=== PATIENT | female | born 1980 | race Caucasian/White ===

== ENCOUNTER 2017-03-12 10:00 | Emergency (ER) | payer OTHER ==
[2017-03-12 10:24] VITALS: BP 118/76
--- NOTE | 2017-03-12 10:49 | UC ---
Throat Pain/Nasal Frandy HPI - HPI Summary HPI Summary: Per it support analyst "Pt c/o of sore throat which started yesterday and pt states her friends have strep. " c/o ST, swollen glands and white spots. tmax 99. ibuprofen has been helping severe pain. no rash - History of Current Complaint Chief Complaint: UCGeneralIllness Stated Complaint: SORE THROAT Time Seen by Provider: 03/12/17 10:30 Hx Last Menstrual Period: 02/26/17 - Allergies/Home Medications Allergies/Adverse Reactions: Allergies Allergy/AdvReac Type Severity Reaction Status Date / Time No Known Allergies Allergy Verified 11/30/16 15:06 PMH/Surg Hx/FS Hx/Imm Hx Previously Healthy: Yes - Surgical History Surgical History: Yes Surgery Procedure, Year, and Place: D&C x2 - Family History Known Family History: Positive: Diabetes - Mom, Other - Positive FMH for uri - Social History Alcohol Use: Occasionally Substance Use Type: None Smoking Status (MU): Never Smoked Tobacco Review of Systems Constitutional: Negative Skin: Negative Eyes: Negative ENT: Sore Throat Respiratory: Negative Cardiovascular: Negative Gastrointestinal: Negative Genitourinary: Negative Motor: Negative Neurovascular: Negative Musculoskeletal: Negative Neurological: Negative Psychological: Negative All Other Systems Reviewed And Are Negative: Yes Physical Exam Triage Information Reviewed: Yes Appearance: No Pain Distress, Well-Nourished - very pleasant Vital Signs: Initial Vital Signs Temp 99.0 F 03/12/17 10:20 Pulse 106 03/12/17 10:20 Resp 14 03/12/17 10:20 BP 118/76 03/12/17 10:20 Pulse Ox 100 03/12/17 10:20 Vital Signs Reviewed: Yes Eye Exam: Normal ENT: Positive: Hearing grossly normal, Pharyngeal erythema - + exudate, TMs normal. Negative: Nasal congestion Dental Exam: Normal Neck: Positive: Supple, Nontender, Enlarged Nodes @ - + anterior cervical LAD Respiratory: Positive: Lungs clear, Normal breath sounds, No respiratory distress, No accessory muscle use. Negative: Crackles, Rhonchi, Stridor, Wheezing Cardiovascular Exam: Normal Cardiovascular: Positive: RRR, No Murmur, Pulses Normal, Brisk Capillary Refill Abdomen Description: Positive: Nontender, Soft Musculoskeletal Exam: Normal Neurological Exam: Normal Psychological Exam: Normal Skin Exam: Normal Skin: Negative: rashes Throat Pain/Nasal Course/Dx - Course Course Of Treatment: + rapid strep - Differential Dx/Diagnosis Differential Diagnosis/HQI/PQRI: Laryngitis, Mononucleosis, Peritonsillar Abscess, Pharyngitis, URI, Other - strep Provider Diagnoses: strep pharyngitis Discharge - Discharge Plan Condition: Stable Disposition: HOME Prescriptions: Amoxicillin PO (*) [Amoxicillin 875 MG (*)] 875 mg PO BID #20 tab Patient Education Materials: Strep Throat (ED) Referrals: Lizette Mendez MD [Primary Care Provider] - 3 Days Additional Instructions: Make sure to take a probiotic daily while on antibiotics to help prevent a potential complication of antibiotic use called c diff. Some well known brands that can be found OTC are [employer], [email or web address] and [facility]. Make sure to complete the entire prescription unless advised otherwise by your health care provider.
== END 2017-03-12 11:09 | disposition home or self-care (01) ==
LOC: UCCORT 10:00
DX: J02.0 Streptococcal pharyngitis (principal)
CPT/HCPCS: 87651; 99212; G0463

== ENCOUNTER 2017-09-20 15:09 | Emergency (ER) | payer OTHER ==
[2017-09-20 16:39] VITALS: BP 125/74
--- NOTE | 2017-09-20 17:00 | UC ---
Complaint Female HPI - HPI Summary HPI Summary: ONSET YESTERDAY OF DYSURIA, FREQUENCY AND URGENCY. SOME LOWER ABD PAIN AND BLOOD IN URINE TODAY. NO FEVER OR BACK PAIN. - History Of Current Complaint Chief Complaint: UCGU Stated Complaint: URINARY Time Seen by Provider: 09/20/17 16:55 Hx Obtained From: Patient Hx Last Menstrual Period: 08/26/17 Onset/Duration: Gradual Onset, Lasting Days, Still Present Severity Initially: Moderate Severity Currently: Moderate Pain Intensity: 7 Pain Scale Used: 0-10 Numeric Character: Burning Aggravating Factor(s): Urination Alleviating Factor(s): Nothing Associated Signs And Symptoms: Negative: Fever, Back Pain, Vaginal Bleeding/ Discharge, Vaginal Discharge, Nausea, Vomiting(# Of Episodes =) - Allergies/Home Medications Allergies/Adverse Reactions: Allergies Allergy/AdvReac Type Severity Reaction Status Date / Time No Known Allergies Allergy Verified 09/20/17 16:33 PMH/Surg Hx/FS Hx/Imm Hx Cardiovascular History: Hypertension Respiratory History: Asthma - Surgical History Surgical History: Yes Surgery Procedure, Year, and Place: D&C x2. LEFT ankle-2 plates, 20 screws - Family History Known Family History: Positive: Diabetes - Mom, Other - Positive FMH for uri - Social History Alcohol Use: Weekly Alcohol Amount: 6 per week Substance Use Type: None Smoking Status (MU): Never Smoked Tobacco Amount Used/How Often: 1/ 2pack a day for 2 years When Did the Patient Quit Smoking/Using Tobacco: 2009 Review of Systems Constitutional: Negative Respiratory: Negative Cardiovascular: Negative Gastrointestinal: Abdominal Pain Genitourinary: Dysuria, Hematuria, Frequency, Urgency All Other Systems Reviewed And Are Negative: Yes Physical Exam Triage Information Reviewed: Yes Appearance: Well-Appearing, No Pain Distress, Well-Nourished Vital Signs: Initial Vital Signs Temp 98.4 F 09/20/17 16:34 Pulse 104 09/20/17 16:34 Resp 16 09/20/17 16:34 BP 125/74 09/20/17 16:34 Pulse Ox 97 09/20/17 16:34 Vital Signs Reviewed: Yes Eyes: Positive: Conjunctiva Clear ENT: Positive: Hearing grossly normal Neck: Positive: Supple Respiratory: Positive: No respiratory distress, No accessory muscle use Cardiovascular: Positive: Pulses Normal Abdomen Description: Positive: Nontender, Soft. Negative: CVA Tenderness (R), CVA Tenderness (L), Distended, Guarding Musculoskeletal: Positive: No Edema Neurological: Positive: Alert Psychological: Positive: Age Appropriate Behavior Skin: Negative: rashes Diagnostics - Laboratory Diagnostic Studies Completed/Ordered: URINE DIP SP GR. 1.010, 3+ BLOOD, 3+ LEUKS , 1+ PROTEIN Complaint Female Dx - Differential Dx/Diagnosis Provider Diagnoses: UTI Discharge - Discharge Plan Condition: Stable Disposition: HOME Prescriptions: Phenazopyridine TAB* [Pyridium TAB*] 200 mg PO TID #6 tab Sulfamethox/Trimethoprim DS* [Bactrim DS 800/160 TAB*] 1 tab PO BID #10 tab Patient Education Materials: Urinary Tract Infection in Women (ED) Referrals: Lizette Mendez MD [Primary Care Provider] - If Needed Additional Instructions: BE SURE TO STAY WELL HYDRATED BACTRIM AND RAMIPRIL TOGETHER CAN INCREASE POTASSIUM LEVELS.
== END 2017-09-20 17:09 | disposition home or self-care (01) ==
LOC: UCCORT 15:09
DX: N39.0 Urinary tract infection, site not specified (principal); Z87.891 Personal history of nicotine dependence
CPT/HCPCS: 81003; 87077; 87086; 87186; 99212; G0463